=== PATIENT | male | born 1995 | race Caucasian/White ===

== ENCOUNTER 2018-05-06 14:07 | Emergency (ER) | payer BC ==
[2018-05-06] MEDS: ADACEL/BOOSTRIX VACCINE (DIPHTH/PERTUSS/ACELL/TETANUS)0.5ML SYR (90715) IM (14:30)
[2018-05-06] MEDS: MORPHINE 4 MG/ML 1ML VIAL/SYRINGE (J2270) IV (14:40)
[2018-05-06] MEDS: KETOROLAC 30 MG/ML VIAL (J1885) IV (14:40)
== END 2018-05-06 16:21 | disposition home or self-care (01) ==
LOC: M ED 14:07
DX: S40.812A Abrasion of left upper arm, initial encounter (principal); S80.812A Abrasion, left lower leg, initial encounter; V29.9XXA Motorcycle rider (driver) (passenger) injured in unspecified traffic accident, initial encounter
CPT/HCPCS: J2270

== ENCOUNTER → 2021-01-28 | Outpatient (REF) | payer OTHER ==
[~2021-01-28] MED LIST: CLEO300C2 PO; HYDR-3715 PO; KETO10TAB PO
== END ==
LOC: M LAB REF 11:43
PROVIDERS: ATTEND Physician Assistant Medical
DX: Z72.51 High risk heterosexual behavior (principal)

== ENCOUNTER → 2022-05-18 | Outpatient (REF) | payer OTHER ==
[2022-05-18 14:52] LABS: GC DNA AMPLIFICATION NEGATIVE (NEGATIVE)
== END ==
LOC: M LAB REF 12:06
PROVIDERS: ATTEND Physician Assistant Medical
DX: Z72.51 High risk heterosexual behavior (principal)

== ENCOUNTER → 2023-11-17 | Outpatient (CLI) | payer OTHER | LOC: M WUC 14:02 | PROVIDERS: ATTEND Physician Assistant Medical | DX: M25.532 Pain in left wrist (principal) ==